=== PATIENT | male | born 1960 | race American Indian/Alaskan Native ===

== ENCOUNTER 2018-06-08 11:18 | Outpatient (CLI) | payer MEDICARE | END 2018-06-08 11:19 | disposition home or self-care (01) | LOC: C.PAT 11:18 | DX: I50.22 Chronic systolic (congestive) heart failure (principal); R06.02 Shortness of breath; E11.9 Type 2 diabetes mellitus without complications ==

== ENCOUNTER 2018-06-08 12:15 | Emergency (ER) | payer MEDICARE ==
[2018-06-08 12:15] VITALS: BMI 31.6
[2018-06-08 12:19] VITALS: O2SAT 99
[2018-06-08] MEDS ORDERED: Lidocaine 5% Patch TD STA (12:51)
[2018-06-08] MEDS ORDERED: Lidocaine 5% Patch TD ONE (13:11)
--- NOTE | 2018-06-08 13:30 | RAD ---
Date of service: 06/08/2018 PROCEDURE: Radiographs of the Lumbar Spine. HISTORY: atraumatic pain COMPARISON: No prior. TECHNIQUE: 5 views obtained. FINDINGS: BONES: Scoliosis, secondary degenerative change at multiple levels. DISC SPACES: Unremarkable. OTHER FINDINGS: Constipation without fecal impaction or obstruction. IMPRESSION: No acute findings related to/ accounting for the clinical presentation.
--- NOTE | 2018-06-08 14:10 | C.PDOC ---
History Of Present Illness 57 y/o male presents to the ED complaining of left low back pain radiating to the left hip and left posterior thigh. Patient admits current pain is similar to prior sciatica episode. Of note, patient is scheduled for elective cardiac cath for 06/10. He was here in the hospital today for pre-admission testing and decided to come and get the back pain checked. Otherwise he denies any dysuria, fevers, incontinence of bowel/bladder, extremity weakness, or numbness. Patient is ambulatory into the ED with steady gait. Time Seen by Provider: 06/08/18 12:50 Chief Complaint (Nursing): Hip Pain History Per: Patient History/Exam Limitations: no limitations Onset/Duration Of Symptoms: Days Current Symptoms Are (Timing): Still Present Severity: Moderate Past Medical History Reviewed: Historical Data, Nursing Documentation, Vital Signs Vital Signs: Last Vital Signs Temp 98.7 F 06/08/18 12:19 Pulse 85 06/08/18 12:19 Resp 18 06/08/18 12:19 BP 186/84 H 06/08/18 12:19 Pulse Ox 99 06/08/18 12:19 - Medical History PMH: Arthritis, Back Problems (previous sciatica) Family History: States: No Known Family Hx - Social History Hx Alcohol Use: No Hx Substance Use: No - Immunization History Hx Tetanus Toxoid Vaccination: No Hx Influenza Vaccination: Yes Hx Pneumococcal Vaccination: No Review Of Systems Except As Marked, All Systems Reviewed And Found Negative. Constitutional: Negative for: Fever, Chills Cardiovascular: Negative for: Chest Pain Respiratory: Negative for: Shortness of Breath Gastrointestinal: Negative for: Nausea, Vomiting Genitourinary: Negative for: Dysuria, Incontinence, Hematuria Musculoskeletal: Positive for: Back Pain, Leg Pain Neurological: Negative for: Weakness, Numbness, Incoordination Physical Exam - Physical Exam Appears: Non-toxic, No Acute Distress Skin: Normal Color, Warm, Dry Head: Atraumatic, Normacephalic Eye(s): bilateral: Normal Inspection Neck: Normal ROM Chest: Symmetrical Cardiovascular: Rhythm Regular, No Murmur Respiratory: Normal Breath Sounds, No Accessory Muscle Use Gastrointestinal/Abdominal: Soft, No Tenderness, No Distention Back: No Vertebral Tenderness, Paraspinal Tenderness (to left paralumbar region) Extremity: Normal ROM, Tenderness (to left posterior thigh and buttock), No Deformity, No Swelling Neurological/Psych: Oriented x3, Normal Speech, Normal Motor, Normal Sensation Gait: Steady ED Course And Treatment O2 Sat by Pulse Oximetry: 99 Pulse Ox Interpretation: Normal - Other Rad LS spine XR X-Ray: Read By Radiologist Interpretation: Accession No. : [id number]. Patient Name / ID : CAROL Nieves / [id number]. Exam Date : 06/08/2018 13:02:12 ( Approved ). Study Comment : Sex / Age : M / 57Y. Creator : Axel Hawthorne MD. Dictator : Axel Hawthorne MD. Color Specialist : Contract Negotiation Manager : Axel Hawthorne MD. Approver2 : Report Date : 06/08/2018 13:26:34. My Comment : . Date of service: 06/08/2018. PROCEDURE: Radiographs of the Lumbar Spine. HISTORY: atraumatic pain. COMPARISON: No prior. TECHNIQUE: 5 views obtained. FINDINGS: BONES: Scoliosis, secondary degenerative change at multiple levels. DISC SPACES: Unremarkable. OTHER FINDINGS: Constipation without fecal impaction or obstruction. IMPRESSION: No acute findings related to/ accounting for the clinical presentation. Progress Note: X-ray taken of LS spine. Patient treated with 50 mg PO Tramadol and Lidoderm patch. On re-evaluation patient is resting comfortably and reports improvement. Upon discharge, patients blood pressure was found to be elevated. States he did not take his usual meds this morning due to the testing. Will give patient his medications and discharge home. Disposition - Disposition Referrals: Renee Pfeiffer MD [Staff Provider] - Disposition: HOME/ ROUTINE Disposition Time: 14:04 Condition: STABLE Additional Instructions: Follow up with PMD within 1-2 days. Return to ED if feel worse. Prescriptions: Lidocaine 5% [Lidoderm] 1 patch TP DAILY #30 patch traMADol [Ultram] 50 mg PO Q6 #20 tab Instructions: Sciatica Forms: [employer] (Tongan) - Clinical Impression Clinical Impression: Sciatica - PA / LEHR OPERATOR / Resident Statement MD/DO has reviewed & agrees with the documentation as recorded. - Scribe Statement The provider has reviewed the documentation as recorded by the Scribcarina Aguila All medical record entries made by the Scribe were at my direction and personally dictated by me. I have reviewed the chart and agree that the record accurately reflects my personal performance of the history, physical exam, medical decision making, and the department course for this patient. I have also personally directed, reviewed, and agree with the discharge instructions and disposition.
[2018-06-08 14:11] VITALS: BP 181/102; PULSE 79; RESP 20; TEMP 98.6
== END 2018-06-08 14:26 | disposition home or self-care (01) ==
LOC: C.ER 12:15
DX: M54.32 Sciatica, left side (principal)

== ENCOUNTER 2018-06-10 07:27 | Day surgery (SDC) | payer MEDICARE ==
[2018-06-08 11:33] VITALS: BMI 31.6
[2018-06-10] MEDS ORDERED: Midazolam 2 MG/2 ML VIAL ONE (11:34)
[2018-06-10] MEDS ORDERED: Verapamil 2 ML ONE (11:34)
[2018-06-10] MEDS ORDERED: Iohexol 350mg/ml 100 ML ONE (11:35)
[2018-06-10] MEDS ORDERED: Nitroglycerin 50mg in D5W 50 MG/250 ML BOTTLE IV ONE (11:35)
[2018-06-10] MEDS ORDERED: Lidocaine 2% MPF (5 ml) Inj ONE (11:48)
[2018-06-10] MEDS ORDERED: Sodium Chloride 0.9% 500 ML IV SCH (12:30)
--- NOTE | 2018-06-13 03:07 | CARDCATH ---
PROCEDURE DATE: 06/10/2018 PROCEDURES: 1. Left heart catheterization. 2. Coronary angiogram. CLINICAL INDICATIONS: 1. Angina. 2. Abnormal stress test. 3. Diabetes. 4. Hypertension. 5. Hyperlipidemia. REFERRING PHYSICIAN: Renee Pfeiffer MD PERFORMING PHYSICIAN: Trevor Carlson MD PROCEDURE: After informed consent, the patient was prepped and draped in the usual sterile fashion. 2% lidocaine was given in the right wrist for local anesthesia. Using micropuncture technique, 6-Azerbaijani sheath was introduced into the right radial artery. A JL4 6-Azerbaijani diagnostic catheter was inserted into left main coronary artery. LVEDP was measured. Contrast injected and LV angiogram was done. Then, the catheter was pulled back across the aortic valve. Gradient across the aortic valve was measured. Then, the same catheter was engaged into right coronary artery. Contrast injected and right coronary angiogram was done. Then, the catheter was exchanged to 6-[place]ijani Sterling catheter. Sterling catheter was engaged into left main coronary artery. Contrast injected and left coronary angiogram was done. The patient tolerated the procedure well. Postprocedure, radiological supervision and radiological interpretation of the coronary imaging was done. FINDINGS: 1. Left main coronary artery is patent. 2. Proximal mid LAD has multiple luminal irregularities. Distal LAD has 90% focal stenosis. However, distal LAD is a small artery. Diagonal branches are patent. 3. Left circumflex is small and multiple diffuse luminal irregularities. 4. Right coronary artery is dominant. Proximal right coronary artery has 60% stenosis. Distal right coronary artery has around 70% stenosis. 5. LV ejection fraction is approximately 55%. Mild globular hypokinesis. EDP is 20. No gradient across the aortic valve. IMPRESSION: 1. Two vessel coronary artery disease. 2. Normal left ventricular systolic function. Recommend coronary intervention of both LAD and right coronary artery. Trevor Carlson MD
== END 2018-06-10 15:45 | disposition home or self-care (01) ==
LOC: C.CATHLAB 07:27
PROVIDERS: ATTEND Internal Medicine Cardiovascular Disease
DX: I25.119 Atherosclerotic heart disease of native coronary artery with unspecified angina pectoris (principal); I50.22 Chronic systolic (congestive) heart failure; R06.02 Shortness of breath; E11.9 Type 2 diabetes mellitus without complications; I10 Essential (primary) hypertension; E78.5 Hyperlipidemia, unspecified
CPT/HCPCS: 93458; 99152; C1769; C1887; J1644; J2001; J2250; J3010; J7040; Q9967